=== PATIENT | female | born 1980 | race Caucasian/White ===

== ENCOUNTER 2021-10-26 17:20 | Outpatient (CLI) | payer OTHER | END 2021-10-26 17:21 | disposition critical access hospital (66) | LOC: EMS 17:20 | DX: R51.9 Headache, unspecified (principal); R11.0 Nausea | CPT/HCPCS: A0425; A0427 ==

== ENCOUNTER 2021-10-26 17:52 | Emergency (ER) | payer OTHER ==
[2021-10-26] MEDS ORDERED: PROCHLORPERAZINE 10 MG/2 ML VIAL IVP STA (18:16)
[2021-10-26] MEDS ORDERED: diphenhydrAMINE INJ 50 MG/ML VIAL IVP STA (18:16)
--- NOTE | 2021-10-26 18:18 | ED Physician Documentation ---
PD HPI HEADACHE - Stated complaint Stated Complaint: HEADACHE - Chief complaint Chief Complaint: Neuro - History obtained from History obtained from: Patient - Additional information Additional information: At 3:15 PM today she was masturbating and had an orgasm and had a sudden severe right-sided headache. She has a history of migraines but this is very different, they are usually gradual in onset and left-sided. This was sudden onset, more severe and right-sided. Review of Systems Ten Systems: 10 systems reviewed and negative Constitutional: denies: Fever, Chills Eyes: reports: Photophobia Ears: reports: Reviewed and negative PD PAST MEDICAL HISTORY - Allergies Allergies/Adverse Reactions: Allergies Allergy/AdvReac Type Severity Reaction Status Date / Time No Known Drug Allergies Allergy Verified 10/26/21 18:02 PD ED PE NORMAL - Vitals Vital signs reviewed: Yes - General General: Alert and oriented X 3, Other (She is crying in pain clearly photophobic under the blankets.) - HEENT HEENT: PERRL, EOMI - Neck Neck: Supple, no meningeal sign, No bony TTP - Derm Derm: Normal color, Warm and dry - Neuro Neuro: Alert and oriented X 3, No motor deficit, No sensory deficit, Normal speech Eye Opening: Spontaneous Motor: Obeys Commands Verbal: Oriented GCS Score: 15 Results - Vitals Vitals: Vital Signs - 24 hr 10/26/21 10/26/21 10/26/21 17:57 19:09 19:28 Temperature 37.1 C 37.2 C Heart Rate 108 H 91 Respiratory 22 16 17 Rate Blood Pressure 139/90 H 137/75 H O2 Saturation 100 100 10/26/21 10/26/21 20:10 20:30 Temperature Heart Rate 68 Respiratory 13 16 Rate Blood Pressure 108/56 L O2 Saturation 100 Oxygen O2 Source Room air PD MEDICAL DECISION MAKING - ED course ED course: 41 yo female with postorgasmic sudden onset headache. Most C/W orgasmic H/A but SAH needs to be ruled out. CTA head NAD. Better after Compazine/benadryl and even more relief p IV toradol. Departure - Departure Disposition: 01 Home, Self Care Clinical Impression: Migraine Qualifiers: Migraine type: with aura Status migrainosus presence: without status migrainosus Intractability: not intractable Qualified Code(s): G43.109 - Migraine with aura, not intractable, without status migrainosus Condition: Good Record reviewed to determine appropriate education?: Yes Instructions: ED Headache Migraine Comments: CT angiography of the head was unremarkable, ruling out aneurysm or subarachnoid hemorrhage. Talk with your doctor about migraine prophylaxis if this becomes pe rsistent and/or continues to be quite frequent. Discharge Date/Time: 10/26/21 20:40
[2021-10-26] MEDS ORDERED: IOVERSOL 320 100 ML VIAL IVP ONE ×2 (18:34→20:20)
--- NOTE | 2021-10-26 19:20 | CT Report ---
PROCEDURE: ANGIO HEAD W/WO INDICATIONS: whol, post orgasmic CONTRAST: IV CONTRAST: Optiray 320 ml: 80 PO CONTRAST: *NO PO CONTRAST TECHNIQUE: Precontrast 4.5 mm thick angled axial sections acquired from the foramen magnum to the vertex. Afte r the administration of intravenous contrast, 1 mm thick sections acquired through the [place] of [place] is. Postcontrast 4.5 mm thick sections then re-acquired from the foramen magnum to the vertex. 3-di mensional fkgijkw-sphrgclxc-nlsaobylul (MIP) and/or volume rendering reformats were acquired of the c entral intracranial vasculature. For radiation dose reduction, the following was used: automated ex posure control, adjustment of mA and/or kV according to patient size. COMPARISON: None FINDINGS: Image quality: Excellent. Anterior circulation: Intracranial internal carotid arteries are normal in size and flow. The flow within the paired anterior cerebral arteries is normal and symmetric. The flow within the middle cer ebral arteries is normal and symmetric. The anterior communicating artery is seen. No aneurysms are seen. Posterior circulation: Visualized portions of the vertebral arteries demonstrate normal caliber, and join to form a normal appearing basilar artery. Flow within the posterior cerebral arteries is norm al and symmetric. No aneurysms are seen. There is normal variant origin of the left posterior cerebral artery of the anterior circulation. CSF spaces: Ventricles are normal in size and shape. Basal cisterns are patent. No extra-axial flu id collections. Brain: No midline shift. No intracranial bleeds or masses. Tobias-white matter interface appears int act. Skull and face: Calvarium and facial bones appear intact, without suspicious lesions. Sinuses: Visualized sinuses and mastoids are clear. 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 IMPRESSION: 1. Normal brain parenchyma. No evidence of acute stroke, hemorrhage, or mass. 2. Unremarkable CTA head with no aneurysms identified. Reviewed by: Papi Seymour MD on 10/26/2021 7:19 PM PDT Approved by: Papi Seymour MD on 10/26/2021 7:19 PM PDT Station ID: [id number]
[2021-10-26] MEDS ORDERED: KETOROLAC 15 MG/ML VIAL IVP STA (19:27)
[2021-10-26 20:12] VITALS: BP 108/56
== END 2021-10-26 20:40 | disposition home or self-care (01) ==
LOC: ED 17:52
DX: G43.109 Migraine with aura, not intractable, without status migrainosus (principal)
CPT/HCPCS: 70496; 96374; 96375; 99283; 99284; J1200; Q9967

== ENCOUNTER 2023-05-31 08:00 | Outpatient (CLI) | payer OTHER | END 2023-05-31 23:59 | disposition home or self-care (01) | LOC: LAB 08:00 | PROVIDERS: ATTEND Registered Nurse | DX: R30.0 Dysuria (principal) | CPT/HCPCS: 87086; 87181 ==

== ENCOUNTER 2023-08-31 08:00 | Outpatient (CLI) | payer OTHER | END 2023-08-31 23:59 | disposition home or self-care (01) | LOC: LAB.N 08:00 | PROVIDERS: ATTEND Registered Nurse | DX: R30.0 Dysuria (principal) | CPT/HCPCS: 87086 ==

== ENCOUNTER 2023-08-31 20:34 | Emergency (ER) | payer OTHER ==
[2023-08-31 21:00] LABS: BASOPHILS % (AUTO) 0.2 %; HCT - HEMATOCRIT 41.4 % (37.0-47.0); HGB - HEMOGLOBIN 13.7 g/dL (12.0-16.0); LYMPHOCYTES # (AUTO) 0.9 10^3/uL (1.5-3.5); LYMPHOCYTES % (AUTO) 7.1 %; MEAN CORPUSCULAR HEMOGLOBIN 30.8 pg (27.0-31.0); MEAN CORPUSCULAR HGB CONC 33.1 g/dL (32.0-36.0); MEAN PLATELET VOLUME 10.9 fL (7.9-10.8); MONOCYTES # (AUTO) 1.2 10^3/uL (0.0-1.0); MONOCYTES % (AUTO) 8.9 %; NEUTROPHILS # (AUTO) 10.7 10^3/uL (1.5-6.6); NEUTROPHILS % (AUTO) 83.3 %; PLT - PLATELET COUNT 184 10^3/uL (130-450); RED BLOOD COUNT 4.45 10^6/uL (4.20-5.40); RED CELL DISTRIBUTION WIDTH 12.3 % (12.0-15.0); WHITE BLOOD COUNT 12.9 x10^3/uL (4.8-10.8)
[2023-08-31] MEDS: IBUPROFEN 600 MG TABLET PO STA (21:03)
[2023-08-31 21:05] LABS: BILIRUBIN,URINE NEGATIVE (NEGATIVE); GLUCOSE, URINE (UA) NEGATIVE (NEGATIVE); KETONES,URINE (UA) NEGATIVE (NEGATIVE); LEUKOCYTE ESTERASE, URINE TRACE (NEGATIVE); NITRITE,URINE NEGATIVE (NEGATIVE); OCCULT BLOOD,URINE SMALL (NEGATIVE); PH,URINE 6.5 PH (5.0-7.5); PROTEIN,URINE NEGATIVE (NEGATIVE); UROBILINOGEN,URINE 0.2 (NORMAL) E.U./dL (NORMAL)
[2023-08-31 21:07] LABS: CLARITY,URINE CLEAR (CLEAR)
[2023-08-31 21:08] LABS: HCG UR QUAL NEGATIVE
[2023-08-31 21:16] LABS: BACTERIA,URINE Few /HPF (None Seen); RBC,URINE None Seen /HPF (0-5); SQUAMOUS EPITHELIAL CELL,UR MOD Squamous (<= Few)
[2023-08-31 21:17] LABS: ALBUMIN 4.5 g/dL (3.2-5.5); ALBUMIN/GLOBULIN RATIO 1.7 (1.0-2.2); CALCIUM 9.8 mg/dL (8.5-10.3); CREATININE 0.8 mg/dL (0.6-1.3); POTASSIUM 3.4 mmol/L (3.5-4.5); TOTAL PROTEIN 7.2 g/dL (6.4-8.9)
--- NOTE | 2023-08-31 21:23 | ED Physician Documentation ---
History of Present Illness - Stated complaint Stated Complaint: MIGRAINE/BODY ACHES/FEVER - Chief complaint Chief Complaint: General - History obtained from History obtained from: Patient, Family (spouse) - Additonal information Additional information: 42yF with pmh migraine, bipolar disorder, p/w fever, myalgia, headache, sore throat, nausea, and dysuria, just seen in clinic and negative for flu, rsv, and covid. u/a negative aside from some blood in u/a. patient states she just finished her menses. denies sharp intermittent back pain but does have dull lower back aches. PD PAST MEDICAL HISTORY - Past Medical History Past Medical History: No - Past Surgical History Past Surgical History: No - Present Medications Home Medications: Ambulatory Orders Medication Instructions Recorded Confirmed DULoxetine [Cymbalta] 20 mg PO BID 08/31/23 08/31/23 Meclizine HCl 25 mg PO QID PRN 08/31/23 08/31/23 Ondansetron Odt [Zofran Odt] 4 mg TL Q6H PRN 08/31/23 08/31/23 Sumatriptan Succinate [Imitrex] 100 mg PO PRN PRN 08/31/23 08/31/23 hydrOXYzine HCL [Hydroxyzine HCl] 25 mg PO HS 08/31/23 08/31/23 lamoTRIgine [LaMICtal] 100 mg PO DAILY 08/31/23 08/31/23 - Allergies Allergies/Adverse Reactions: Allergies Allergy/AdvReac Type Severity Reaction Status Date / Time Sulfa (Sulfonamide Allergy Unknown Verified 08/31/23 20:37 Antibiotics) - Social History Does the pt smoke?: No Smoking Status: Never smoker Does the pt drink ETOH?: No Does the pt have substance abuse?: No - Immunizations Immunizations are current?: No - POLST Patient has POLST: No PD ED PE NORMAL - Vitals Vital signs reviewed: Yes - General General: Alert and oriented X 3, No acute distress, Well developed/nourished - HEENT HEENT: Atraumatic, PERRL, EOMI, Ears normal, Moist mucous membranes, Pharynx benign - Neck Neck: Supple, no meningeal sign, Other (BL tender anterior cervical LAD) - Cardiac Cardiac: RRR - Respiratory Respiratory: No respiratory distress, Clear bilaterally - Abdomen Abdomen: Non tender, Non distended - Back Back: No CVA TTP - Derm Derm: Normal color, Warm and dry - Extremities Extremities: No deformity - Neuro Neuro: Alert and oriented X 3, 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, No motor deficit, No sensory deficit, Normal speech Eye Opening: Spontaneous Motor: Obeys Commands Verbal: Oriented GCS Score: 15 Results - Vitals Vitals: Vital Signs - 24 hr 08/31/23 08/31/23 08/31/23 20:37 21:03 21:06 Temperature 37.2 C 36.2 C L 36.2 C L Heart Rate 100 Respiratory 20 Rate Blood Pressure 123/70 O2 Saturation 98 Oxygen O2 Source Room air - Labs Labs: Laboratory Tests 08/31/23 08/31/23 08/31/23 20:54 20:54 20:55 WBC 12.9 H RBC 4.45 Hgb 13.7 Hct 41.4 MCV 93.0 MCH 30.8 MCHC 33.1 RDW 12.3 Plt Count 184 MPV 10.9 H Neut # (Auto) 10.7 H Lymph # (Auto) 0.9 L [place] # (Auto) 1.2 H Eos # (Auto) 0.0 Baso # (Auto) 0.0 Absolute Nucleated RBC 0.00 Nucleated RBC % 0.0 Sodium 132 L Potassium 3.4 L Chloride 101 Carbon Dioxide 23 Anion Gap 8.0 BUN 9 Creatinine 0.8 Estimated GFR (MDRD) 78 L Glucose 150 H Calcium 9.8 Total Bilirubin 1.0 AST 12 ALT 14 Alkaline Phosphatase 62 Total Protein 7.2 Albumin 4.5 Globulin 2.7 Albumin/Globulin Ratio 1.7 Urine Color YELLOW Urine Clarity CLEAR Urine pH 6.5 Ur Specific [place] <=1.005 Urine Protein NEGATIVE Urine Glucose (UA) NEGATIVE Urine Ketones NEGATIVE Urine Occult Blood SMALL H Urine Nitrite NEGATIVE Urine Bilirubin NEGATIVE Urine Urobilinogen 0.2 (NORMAL) Ur Leukocyte Esterase TRACE H Urine RBC None Seen Urine WBC 6-10 H Ur Squamous Epith Cells MOD Squamous H Urine Bacteria Few Ur Microscopic Review INDICATED Urine Culture Comments NOT INDICATED Urine HCG, Qual NEGATIVE PD Medical Decision Making - ED course ED course: 42yF presents to the ED with acute viral URI and migraine headache. treated symptomatically with IVF, reglan, benadryl, ativan, ibuprofen with improvement. patient already took tylenol prior to arriving. cbc, abdominal panel, repeat u/a, rvp performed and looked benign. some leukocytosis with wbc 12.9 and lymphopenia, consistent with viral syndrome. u/a again shows blood, though the small leukocyte esterase can be explained by moderate squamous cells, indicating likely contaminated sample. shared decision made to employ watchful waiting rather than starting antibiotics given this is unlikely to be uti. symptomatic care discussed. plan to f/u with pcp. return precautions given. Departure - Departure Clinical Impression: URI (upper respiratory infection) Condition: Stable Instructions: ED URI Viral Comments: You were seen in the emergency department for viral upper respiratory infection and migraine headache. Your labwork showed an increased white blood cell count with a pattern that usually indicated viral infection. Your labwork otherwise l ooked pretty good. Get lots of rest and stay well hydrated during this healing period. Please follow-up with your primary care provider and return to the emergency department if you have any new or worsening symptoms or other concerns. Forms: PCP List
[2023-08-31] MEDS: SODIUM CHLORIDE 0.9% 1,000 ML IV STA (21:38)
[2023-08-31] MEDS: LORazepam 2 MG/ML VIAL IVP STA (21:39)
[2023-08-31] MEDS: diphenhydrAMINE INJ 50 MG/ML VIAL IVP STA (21:41)
[2023-08-31] MEDS: METOCLOPRAMIDE 10 MG/2 ML VIAL IVP STA (21:41)
[2023-08-31 21:57] LABS: B. PARAPERTUSSIS- RESP PCR PAN NOT DETECTED; B. PERTUSSIS- RESP PCR PANEL NOT DETECTED; C. PNEUMONIAE- RESP PCR PANEL NOT DETECTED; CORONAVIRUS 229E-RESP PCR NOT DETECTED; CORONAVIRUS HKU1-RESP PCR NOT DETECTED; CORONAVIRUS NL63-RESP PCR NOT DETECTED; CORONAVIRUS OC43-RESP PCR NOT DETECTED; HUMAN METAPNEUMOVIRUS NOT DETECTED; INFLUENZA A- RESP PCR PANEL NOT DETECTED; INFLUENZA B - RESP PCR PANEL NOT DETECTED; M. PNEUMONIAE- RESP PCR PANEL NOT DETECTED; PARAINFLUENZA VIRUS 1 NOT DETECTED; PARAINFLUENZA VIRUS 2 NOT DETECTED; PARAINFLUENZA VIRUS 3 NOT DETECTED; PARAINFLUENZA VIRUS 4 NOT DETECTED; RHINOVIRUS/ENTEROVIRUS NOT DETECTED; RSV- RESP PCR PANEL NOT DETECTED; SARS-CoV-2 -RESP PCR PANEL NOT DETECTED
[2023-08-31 23:09] VITALS: BP 115/68; O2SAT 94
== END 2023-08-31 23:04 | disposition home or self-care (01) ==
LOC: ED 20:34
DX: J06.9 Acute upper respiratory infection, unspecified (principal); D72.829 Elevated white blood cell count, unspecified
CPT/HCPCS: 36415; 80053; 81001; 81025; 85025; 87633; 96374; 96375; 99283; A9270; J1200; J2060; J2765; 81003; 87086

== ENCOUNTER 2023-09-09 03:11 | Emergency (ER) | payer OTHER ==
[2023-09-09 03:35] VITALS: BP 149/76; O2SAT 100
[2023-09-09 03:58] LABS: RAPID STREP SCREEN Negative (Negative)
[2023-09-09] MEDS: LIDOCAINE VISCOUS 2% 15 ML ORAL SYRINGE MM STA (04:06)
--- NOTE | 2023-09-09 04:13 | ED Physician Documentation ---
History of Present Illness - Stated complaint Stated Complaint: SORE THROAT - Chief complaint Chief Complaint: Heent - History obtained from History obtained from: Patient - Additonal information Additional information: 42yF with pmh bipolar, depression, anxiety, ptsd p/w sore throat she states has been ongoing for the past three weeks. Patient states she has been unable to sleep more than an hour. She endorses drinking 4 servings of alcohol tonight and taking methocarbamol to try to relieve the pain and get some sleep. patient has had multiple clinic and ED visits this week with negative flu, covid, strep testing. She has found no relief with otc meds and is requesting hydrocodone or percoset as pain relief. 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: Tonsil/Adenoidectomy - Present Medications Home Medications: Ambulatory Orders Medication Instructions Recorded Confirmed DULoxetine [Cymbalta] 20 mg PO BID 08/31/23 09/09/23 Meclizine HCl 25 mg PO QID PRN 08/31/23 09/09/23 Ondansetron Odt [Zofran Odt] 4 mg TL Q6H PRN 08/31/23 09/09/23 Sumatriptan Succinate [Imitrex] 100 mg PO PRN PRN 08/31/23 09/09/23 hydrOXYzine HCL [Hydroxyzine HCl] 25 mg PO HS 08/31/23 09/09/23 lamoTRIgine [LaMICtal] 100 mg PO DAILY 08/31/23 09/09/23 - Allergies Allergies/Adverse Reactions: Allergies Allergy/AdvReac Type Severity Reaction Status Date / Time Sulfa (Sulfonamide Allergy Unknown Verified 09/09/23 03:27 Antibiotics) - Social History Does the pt smoke?: No Smoking Status: Never smoker Does the pt drink ETOH?: Yes ETOH Use: Wine Does the pt have substance abuse?: No - Immunizations Immunizations are current?: Yes - POLST Patient has POLST: No PD ED PE NORMAL - Vitals Vital signs reviewed: Yes - General General: Alert and oriented X 3, No acute distress, Well developed/nourished, Other (tearful appearing, whispering in a soft voice) - HEENT HEENT: Atraumatic, PERRL, EOMI, Moist mucous membranes, Pharynx benign - Neck Neck: Supple, no meningeal sign - Derm Derm: Normal color, Warm and dry - Psych Psych: Other (depressed affect) Results - Vitals Vitals: Vital Signs - 24 hr 09/09/23 03:15 Temperature 36.4 C L Heart Rate 96 Respiratory 16 Rate Blood Pressure 149/76 H O2 Saturation 100 Oxygen O2 Source Room air - Labs Labs: Laboratory Tests 09/09/23 03:30 Group A Strep Rapid Negative PD Medical Decision Making - ED course ED course: 42yF p/w inability to sleep 2/2 sore throat, intermittent X 3 weeks. she has had negative workup including strep testing, flu, covid and multiple ED and clinic visits for same. Viscous lidocaine was provided here in the ED with minimal relief. discussed that there may not be much else we can do to help here in the ED. Patient may benefit from seeing her pcp or a psychiatrist to discuss sleep aids given her continued inability to sleep. Patient then became tearful, asking for percoset or hydrocodone and becoming upset when I discussed that these medications are controlled substances and not appropriate for treatment of sore throat. Plan to discharge home to f/u with pcp. Departure - Departure Disposition: 01 Home, Self Care Clinical Impression: Sore throat, Insomnia Condition: Stable Instructions: Sore Throat Comments: You were seen in the emergency department for sore throat and inability to sleep. Your strep test was negative but we will call you if the culture comes back positive. You can take cepacol throat drops (available over the counter) containing lidocaine to help with sore throat. Please follow-up with your primary care provider and return to the emergency department if you have any new or worsening symptoms or other concerns. Forms: PCP List
== END 2023-09-09 04:53 | disposition home or self-care (01) ==
LOC: ED 03:11
DX: J02.9 Acute pharyngitis, unspecified (principal); G47.00 Insomnia, unspecified; Z79.899 Other long term (current) drug therapy
CPT/HCPCS: 87070; 87430; 99283